=== PATIENT | female | born 1970 | race Two or more races ===

== ENCOUNTER 2019-04-20 21:36 | Emergency (ER) | payer MEDICAID ==
[~2019-04-20] VITALS: Ht 154.9 cm; Wt 82.6 kg
[2019-04-20 21:49] VITALS: BP 137/86
--- NOTE | 2019-04-20 22:11 | NUR ---
EMT AT BEDSIDE FOR L SHOULDER SLING FOR ELBOW IMMOBILIZER
--- NOTE | 2019-04-20 22:18 | NUR ---
Patient discharged to home in stable condition. Written and verbal after care instructions given. Patient verbalizes understanding of instruction. Pt ambulatory with a steady gait
== END 2019-04-20 22:19 | disposition home or self-care (01) ==
LOC: ER 21:40
DX: M75.22 Bicipital tendinitis, left shoulder (principal)